=== PATIENT | female | born 1970 | race Two or more races ===

== ENCOUNTER 2024-09-16 14:26 | Outpatient (AMB) | payer MEDICAID, SELFPAY ==
[2024-09-16 14:46] VITALS: BP 134/85; PULSE 72; RESP 18; TEMP 36.8; O2SAT 96; BMI 22.6
--- NOTE | 2024-09-16 14:46 | PD.ORTHCLVIS ---
Vital signs 09/16/24 14:46 Height 1.63 m Height Method Stated Weight 59.931 kg Weight Measurement Method Standing Scale BMI 22.6 BP 134/85 H Blood Pressure Source Automatic Cuff Blood Pressure Location Left Upper Arm Position Sitting Respiration 18 Pulse 72 Pulse Source Monitor Temp 98.2 F Temp Source Temporal Artery Scan Pulse Oximetry (%) 96 Oxygen Delivery Method Room Air Med/Allergies Allergies & Medications Allergies No Known Allergies Allergy (Verified 09/16/24 14:46) Medication Reconciliation levothyroxine 50 mcg capsule 50 mcg PO QDAY 09/16/24 [History Confirmed 09/16/24] meloxicam 7.5 mg tablet 7.5 mg PO QDAY #45 tabs 09/16/24 [Rx] Exam Exam Patient is in no acute distress and is cooperative with the examination today. Breathing is nonlabored. In no respiratory distress. Bilateral extremities were evaluated and demonstrates sensation intact to light touch. Palpable pedal pulses are present. No significant edema is present. Bilateral hips were examined. The patient has no pain with log roll of the hips. Internal rotation to 30 degrees and external rotation to 30 degrees is painless. Negative FADIR. The left knee was examined. The left knee is in varus alignment. Range of motion from 0-115 degrees. Knee is stable to varus and valgus as well as AP translation with <5mm. Patient has a negative McMurrays. There is no pain with patellofemoral compression and no crepitus noted. The knee is tender to palpation medially. The right knee was also examined. The right knee is in varus alignment. Range of motion from 0-120 degrees. Knee is stable to varus and valgus as well as AP translation with <5mm. Patient has a negative McMurrays. There is no pain with patellofemoral compression and no crepitus noted. The knee is tender to palpation medially. X-rays demonstrate minimal arthritis Assessment and Plan Problem List (1) Buttock pain: Status: Acute Plan: Patient is a 54-year-old female with buttocks pain and mild arthritis of the right hip. We discussed to try anti-inflammatories. She has no pain with logroll or any provocative hip test. I do not think the pain is likely causing from the hip. We discussed that the labral tear can be treated with nonoperative treatment especially since the pain does not appear to be localized there. 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) MA Intake Visit Data Collection New Patient or Established: Established Patient (seen at [facility] within 3 years) Reason for Visit:: RIGHT HIP Seen by Clinical Staff ONLY (RN/MA): No Fabric Inspector Required: Yes PCP or OBGYN visit in last 3 months: Yes Hx Now: No Do You Feel Safe at Home: Yes Authorities Contacted: N/A Questionairres Past Medical History Past Medical History Have you ever been diagnosed with any of the following: Cardiology Problems Hypercholesterolemia: Yes Hypertension: Yes Respiratory Problems Smoking: No Smoking Cessation Counseling: No Smoking Exposure: No Endocrine Problems Hyperthyroidism: Yes Subjective Visit Visit for: new patient and hip Immunization / Flu Flu Vaccine in the Last 12 Months: Yes Flu Vaccine Exclusion Criteria: Already Received History of Present Illness Chief complaint: right buttoick pain Date of injury / onset of symptoms: 2 YEARS Patient is a pleasant 54-year-old female with bilateral hip pain. She reports the right hip pain is worse than the left. The pain is primarily in the buttocks. She has no pain in the groin. She has no pain with logroll and has no difficulty tying her shoes. She has not tried any conservative treatment Pain Pain level (0-10): 6 Pain duration: ALL DAY Pain quality: sharp, dull and aching Pain timing: increases with activity and other (specify) (LIMPING) Ambulatory data Ambulatory device: none Treatments Improvement with previous injections: No Improvement with PT: No Improvement with NSAIDS: no (TYLENOL) Review of Systems Review of Systems: All systems negative unless otherwise noted in HPI.
== END 2024-09-16 15:16 | disposition home or self-care (01) ==
PROVIDERS: PCP Physician Assistant; Referring Provider Physician Assistant; Supervising Provider Orthopaedic Surgery Adult Reconstructive Orthopaedic Surgery; Visit Provider Orthopaedic Surgery Adult Reconstructive Orthopaedic Surgery
DX: R52 Pain, unspecified (principal); M16.11 Unilateral primary osteoarthritis, right hip; M25.551 Pain in right hip; I10 Essential (primary) hypertension; E78.00 Pure hypercholesterolemia, unspecified
CPT/HCPCS: 99204; G0463